=== PATIENT | female | born 1970 | race Caucasian/White ===

== ENCOUNTER 2024-12-12 10:25 | Outpatient (CLI) | payer BC | END 2024-12-12 10:26 | disposition home or self-care (01) | LOC: CSHSLEEP 10:25 | PROVIDERS: ATTEND Family Medicine | DX: G47.33 Obstructive sleep apnea (adult) (pediatric) (principal); R53.83 Other fatigue; F32.A Depression, unspecified; E66.9 Obesity, unspecified; Z68.30 Body mass index [BMI] 30.0-30.9, adult; R06.83 Snoring; G47.00 Insomnia, unspecified | CPT/HCPCS: 95810 ==